=== PATIENT | male | born 1960 | race Caucasian/White ===

== ENCOUNTER 2017-04-12 07:00 | Day surgery (SDC) | payer OTHER ==
[~2017-04-12] VITALS: Ht 182.9 cm; Wt 111.1 kg
[~2017-04-12 07:00] MED LIST: COREG CR40 MG PO; FUROSEMIDE20 MG PO; LISINOPRIL20 MG PO; PERCOCET 7.5-31 EACH PO
--- NOTE | 2017-04-12 09:39 | NUR ---
0930 has been updated warm blanket on.iv patent.
--- NOTE | 2017-04-12 10:56 | NUR ---
04/12/17 1056 Heather Gibson 1033 RESP EVEN AND UNLABORED. 1039 O2 REMOVED, O2 SAT 100%. 1055 PT AWAKE AND DRINKING WATER.
--- NOTE | 2017-04-13 10:17 | OR ---
[facility] [address] [place], [place] [address] Signed DATE OF OPERATION: 04/12/2017 SURGEON: Praveen Coffey MD PREOPERATIVE DIAGNOSIS: Screening. POSTOPERATIVE DIAGNOSES: 1. A 4 mm polyps x3 at 12 cm. 2. A 4 mm polyp at 20 cm. 3. Minimal to moderate sigmoid diverticulosis. PROCEDURE: Colonoscopy with hot biopsy. ESTIMATED BLOOD LOSS: None. INDICATIONS: Reji is a 56-year-old gentleman, asked to see me for his initial screening colonoscopy. He told me I helped his with a colonoscopy just a few weeks ago. He said he has no lower GI complaints and there is no family history of colon cancer or polyps. I gave him a pamphlet on colonoscopy. We looked at that together along with the risks including, but not limited to, gas bloating, crampy abdominal pain, bleeding, perforation, requiring surgery, and missed diagnosis. We also discussed the need for IV conscious sedation. Given his daily need for hydrocodone, we decided our Versed and fentanyl would not be enough. He also has obstructive sleep apnea and requires CPAP mask. Consequently, we asked our anesthesia provider to help us with increased monitoring sedation with propofol. He had expressed understanding and wished to proceed. PROCEDURE NOTE: Reji was taken into our procedure room and placed in the left lateral decubitus position. He was given IV sedation per nurse chief radiation therapist. A digital rectal exam was performed and this was unremarkable. He was getting just a little induration to the prostate at his age. The adult colonoscope was introduced and advanced all around into the cecum under direct visualization of camera without difficulty. His prep was overall good. There was just a couple areas of sticky stool. I could not quite irrigate and suction out completely. The scope was slowly withdrawn. We did see the diverticula in the sigmoid colon. They were moderate in size, minimal to moderate in number, and Electronically Signed By: PRAVEEN COFFEY MD 04/13/17 1017 PATIENT NAME: ARTURO DALTON OPERATIVE REPORT DATE OF : 60 PHYSICIAN: PRAVEEN COFFEY MD REPORT #: [id number] REPORT IS CONFIDENTIAL AND NOT TO BE RELEASED WITHOUT AUTHORIZATION [facility] [address] [place], [place] [address] Signed scattered about. In the rectum, he had one polyp of 20 cm and 3 polyps down around 12 cm. They were all removed with the help of hot biopsy forceps. The scope had been retroflexed and there was no additional pathology noted above the anal canal. After this, the gas was suctioned out and the colonoscope removed. Reji tolerated the procedure quite well. RECOMMENDATIONS: I will see Reji back in my office in 7 to 14 days to review his results. MD LALIT Solomon/CHRISTAL /[id number] cc: Alden Keller MD Electronically Signed By: PRAVEEN COFFEY MD 04/13/17 1017 PATIENT NAME: ARTURO DALTON OPERATIVE REPORT DATE OF : 60 PHYSICIAN: PRAVEEN COFFEY MD REPORT #: [id number] REPORT IS CONFIDENTIAL AND NOT TO BE RELEASED WITHOUT AUTHORIZATION
== END 2017-04-12 11:16 | disposition home or self-care (01) ==
LOC: DS 07:00 → OPS 07:00 → DS 08:00 → OPS 11:16
PROVIDERS: Colon & Rectal Surgery
PROC: 0DBE8ZX Excision of Large Intestine, Via Natural or Artificial Opening Endoscopic, Diagnostic (ICD-10-PCS; principal; 2017-04-12 08:00)
DX: Z12.11 Encounter for screening for malignant neoplasm of colon (principal); D12.6 Benign neoplasm of colon, unspecified; K63.5 Polyp of colon; I10 Essential (primary) hypertension; M19.131 Post-traumatic osteoarthritis, right wrist; Z79.899 Other long term (current) drug therapy; Z98.890 Other specified postprocedural states; Z96.652 Presence of left artificial knee joint; Z87.891 Personal history of nicotine dependence; Z88.8 Allergy status to other drugs, medicaments and biological substances
CPT/HCPCS: 80053; J2704; J7120

== ENCOUNTER 2019-11-27 08:00 | Day surgery (SDC) | payer OTHER ==
[~2019-11-27] VITALS: Ht 180.3 cm; Wt 108.9 kg
[~2019-11-27 08:00] MED LIST changes: +FISH OIL 1,0001 EAC2 NG; +MULTI-VITAMIN1 EACH
[2019-11-27] MEDS ORDERED: CIPRO500 MG PO (08:19)
--- NOTE | 2019-11-28 05:59 | OR ---
[facility] [address] [place], [place] [address] Signed DATE OF OPERATION: 11/27/2019 SURGEON: Praveen Coffey MD PREOPERATIVE DIAGNOSIS: Subcutaneous masses x5. POSTOPERATIVE DIAGNOSES: 1. Epidermal inclusion cyst, right mid back (1 cm). 2. Subcutaneous lipomas x4. PROCEDURE: Excision of subcutaneous masses x5. ESTIMATED BLOOD LOSS: None. 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 He has developed 5 subcutaneous masses over his body that have caused him quite a bit of trouble wearing the harness at work. The largest was on the left anterior shoulder area and it is probably 2-1/2, maybe 3 cm in diameter. He has this another area in the left mid quadrant of his abdomen out laterally. It is probably 12, maybe 15 mm and then he has 2 at the base of his neck, one on left and one on the right, each one a good centimeter or more in diameter, and then his left mid back just slightly off his midline has a sebaceous cyst and/or epidermal inclusion cyst. He describes that very clearly as being squeezed over the years and getting the sebum out of that area. He is not able to do that, it is getting larger and causing him and pain. Particularly, when he has to lay on his back or sit in a chair and so forth. He asked if he could have all 5 of these removed. I explained him we can certainly do all these over at the hospital, particularly on his back, those are the most difficult near the neck and one on his mid back. I know it was going to be difficult given the fact he has been squeezing it for years. He understands each one need a separate incision. There is risk to the surgery including, but not limited to bleeding, infection, scarring, change in contour of the skin as well as recurrent cyst and/or lipomas in the same or other locations. He expressed understanding and wished to proceed. DESCRIPTION OF PROCEDURE: I had met with Rad in our preop area and we marked all 5 locations. After this, he was taken to the operating room and placed in the right lateral decubitus position under Electronically Signed By: PRAVEEN COFFEY MD 11/28/19 0559 PATIENT NAME: ARTURO DALTON OPERATIVE REPORT DATE OF : 60 REPORT #: [id number] PHYSICIAN: PRAVEEN COFFEY MD PCP: ANA AREVALO PAC REPORT IS CONFIDENTIAL AND NOT TO BE RELEASED WITHOUT AUTHORIZATION [facility] [address] [place], [place] [address] Signed general endotracheal tube anesthesia. He had appropriate padding and monitoring in place. He was given preoperative antibiotics along with subcutaneous heparin. SCDs were utilized. He had been prepped and draped in the usual sterile fashion. We started on his left mid quadrant of the abdomen and into his mid back and into the base of his neck. An incision was made over each lesion and carried down around the lesion bluntly and with the cautery. After this, local anesthetic was injected in each operative site. The wounds were irrigated and suctioned out until clear. The dermis was reapproximated with interrupted 3-0 subcuticular Monocryl sutures. The skin edges were then reapproximated with running 5-0 fast absorbing plain gut suture. Dry gauze and tape were applied these for lesions. Afterwards, the entire field was taken down. He was rotated into the supine position. His left shoulder was then prepped and draped in the usual sterile fashion. In a similar fashion, an incision was made over the lesion and carried down around the lesion bluntly and with the cautery. Local anesthetic was injected in the lesion. The wound was irrigated and suctioned out until clear and then the dermis was closed with interrupted 3-0 subcuticular Monocryl sutures. 5-0 fast absorbing plain gut suture was used to reapproximate the skin edges. Dry gauze and tape were then applied. Rad was awakened from his anesthesia, extubated in the OR, and taken to recovery room in stable condition. Praveen Coffey MD ALB/MODL /[id number] cc: MD Alden Solomon MD Copies: PRAVEEN COFFEY MD, JONATHAN MD ~ Electronically Signed By: PRAVEEN COFFEY MD 11/28/19 0559 PATIENT NAME: ARTURO DALTON OPERATIVE REPORT DATE OF : 60 REPORT #: [id number] PHYSICIAN: PRAVEEN COFFEY MD PCP: ANA AREVALO PAC REPORT IS CONFIDENTIAL AND NOT TO BE RELEASED WITHOUT AUTHORIZATION
--- NOTE | 2019-11-29 08:34 | PATH ---
[facility] [address] [facility] [place], [place] [address] Signed SPECIMEN(S): A LEFT LOWER QUADRANT ABDOMEN SPECIMEN(S): B MID BACK SPECIMEN(S): C BASE OF NECK, LEFT SPECIMEN(S): D BASE OF NECK, RIGHT SPECIMEN(S): E LEFT ANTERIOR SHOULDER SPECIMEN SOURCE: A. LEFT LOWER QUADRANT ABDOMEN B. MID BACK C. BASE OF NECK, LEFT D. BASE OF NECK, RIGHT E. LEFT ANTERIOR SHOULDER CLINICAL HISTORY: Subcutaneous masses, left shoulder, neck, back and left side. Excise subcutaneous mass x 4. FINAL PATHOLOGIC DIAGNOSIS: A. Soft tissue, left lower quadrant abdomen, excision: - Mature fibroadipose tissue, consistent with lipoma. B. Soft tissue, mid back, excision: - Epidermoid inclusion cyst, disrupted. C. Soft tissue, left base of neck, excision: - Angiolipoma. D. Soft tissue, right base of neck, excision: - Angiolipoma. E. Soft tissue, left anterior shoulder, excision: - Angiolipoma. NAL:cml:C2NR MICROSCOPIC EXAMINATION: Histologic sections of all submitted blocks are examined by light microscopy. These findings, together with the gross examination, support the pathologic diagnosis. GROSS DESCRIPTION: Five specimens are received in five containers, labeled "DM." A. The specimen, labeled "DM," and designated on the requisition "left lower quadrant abdomen," is received in formalin and consists of multiple pieces of yellow-mcallister fatty tissue (3.7 x 3.3 x 1.7 cm in aggregate). National Sales Manager sections are submitted in cassette (A1). PATIENT NAME: ARTURO DALTON PATHOLOGY DATE OF : 60 REPORT #: [id number] PHYSICIAN: LISA MYRICK PCP: ANA AREVALO PAC REPORT IS CONFIDENTIAL AND NOT TO BE RELEASED WITHOUT AUTHORIZATION [facility] [address] [place], [place] [address] Signed B. The specimen, labeled "DM," and designated on the requisition "mid back mass," is received in formalin and consists of one piece of yellow-mcallister soft tissue (2.1 x 1.5 x 1.0 cm) with a disrupted white-mcallister cystic mass (1.4 x 1.1 x 0.8 cm), containing a white-mcallister grumous to friable material. National Sales Manager sections are submitted in cassette (B1). C. The specimen, labeled "DM," and designated on the requisition "base of neck, left neck," is received in formalin and consists of a portion of yellow-mcallister to hemorrhagic adipose tissue (3.2 x 2.9 x 2.2 cm). The yellow surface is inked blue and the specimen is serially sectioned to reveal a yellow-mcallister fatty cut surface with a pink-mcallister homogenous, well-defined fatty mass (1.7 x 1.7 x 1.2 cm). National Sales Manager sections are submitted in cassette (C1). D. The specimen, labeled "DM," and designated on the requisition "base of neck, right," is received in formalin and consists of a portion of yellow-mcallister a tissue (2.3 x 1.5 x 1.2 cm). The outer surface is inked blue and the specimen is serially sectioned to reveal a yellow-mcallister to mcallister-red fatty cut surface. National Sales Manager sections are submitted in cassette (D1). E. The specimen, labeled "DM," and designated on the requisition "mass left anterior shoulder," is received in formalin and consists of a portion of yellow-mcallister encapsulated fatty tissue (4.5 x 3.8 x 1.4 cm). The specimen is serially sectioned to reveal a yellow-mcallister to slightly hemorrhagic homogenous cut surface. National Sales Manager sections are submitted in cassettes (E1-E2). AC (under the direct supervision of a pathologist) The Gross Description was prepared using a voice recognition system. The report was reviewed for accuracy; however, sound-alike word errors, addition and/or deletions may occur. If there is any question about this report, please contact Client Services. PERFORMING LABORATORY: The technical component was [place] [address] (Cash Sales Audit Clerk: Tiffany Craft MD; CLIA# [id number]). Professional interpretation was performed by [place] [address] (CLIA# [id number]). Diagnostician: Nicolasa Santoyo MD Pathologist Electronically Signed 11/29/2019 PATIENT NAME: ARTURO DALTON PATHOLOGY DATE OF : 60 REPORT #: [id number] PHYSICIAN: LISA MYRICK PCP: ANA AREVALO PAC REPORT IS CONFIDENTIAL AND NOT TO BE RELEASED WITHOUT AUTHORIZATION [place] [address] Signed Copies: ~ PATIENT NAME: SHAARTUROAMILCAR BUSTAMANTE PATHOLOGY DATE OF : 60 REPORT #: [id number] PHYSICIAN: LISA MYRICK PCP: ANA AREVALO PAC REPORT IS CONFIDENTIAL AND NOT TO BE RELEASED WITHOUT AUTHORIZATION
== END 2019-11-27 14:15 | disposition home or self-care (01) ==
LOC: OPS 08:00 → DS 08:00
PROVIDERS: ATTEND Colon & Rectal Surgery
PROC: 0HB6XZZ Excision of Back Skin, External Approach (ICD-10-PCS; 2019-11-27)
PROC: 0JB40ZZ Excision of Right Neck Subcutaneous Tissue and Fascia, Open Approach (ICD-10-PCS; 2019-11-27)
PROC: 0JB50ZZ Excision of Left Neck Subcutaneous Tissue and Fascia, Open Approach (ICD-10-PCS; 2019-11-27)
PROC: 0JBF0ZZ Excision of Left Upper Arm Subcutaneous Tissue and Fascia, Open Approach (ICD-10-PCS; 2019-11-27)
PROC: 0JB80ZZ Excision of Abdomen Subcutaneous Tissue and Fascia, Open Approach (ICD-10-PCS; principal; 2019-11-27 08:15)
DX: D17.0 Benign lipomatous neoplasm of skin and subcutaneous tissue of head, face and neck (principal); D17.1 Benign lipomatous neoplasm of skin and subcutaneous tissue of trunk; D17.39 Benign lipomatous neoplasm of skin and subcutaneous tissue of other sites; L72.0 Epidermal cyst; I11.0 Hypertensive heart disease with heart failure; I50.9 Heart failure, unspecified; Z79.899 Other long term (current) drug therapy; Z87.891 Personal history of nicotine dependence; Z88.8 Allergy status to other drugs, medicaments and biological substances
CPT/HCPCS: J0330; J0690; J1100; J1644; J1885; J2001; J2250; J2405; J2704; J3475; J7121

== ENCOUNTER 2020-06-10 10:47 | Day surgery (SDC) | payer OTHER ==
[~2020-06-10] VITALS: Ht 330.2 cm; Wt 99.8 kg
[~2020-06-10 10:47] MED LIST changes: +BAYER CHEWABLE81 MG PO; +CIPRO500 MG PO; +VITAMIN C1000 MG PO; +VITAMIN D3 COM1 EACH PO
--- NOTE | 2020-06-10 12:39 | NUR ---
06/10/20 1239 Cait Hinojosa 1230- PT TO PACU IN PRONE POSITION. EYES CLOSED. DOES NOT RESPOND TO VERBAL OR TACTILE STIMULI. BREATHING EASY AND UNLABORED.SPO2 >95% ON 3 L O2 VIA NC. VSS. 1237- PT RESPONDS TO VERBAL AND TACTILE STIMULI. PT DROWSY BUT BREATHING EASY AND UNLABORED. SPO2 >95% . O2 TITRATED DOWN TO ROOM AIR. PT DENIES PAIN NAUSEA OR DIZZINESS.
--- NOTE | 2020-06-17 14:18 | PATH ---
[facility] [address] [facility] [place], [place] [address] Signed THIS IS AN ADDENDUM REPORT SPECIMEN(S): C COMPREHENSIVE FLOW CYTOMETRY ONLY IN BM EDTA SPECIMEN(S): A BONE MARROW - CORE SPECIMEN(S): B BONE MARROW - ASPIRATION CLINICAL HISTORY: Bone marrow biopsy. 59-year-old asymptomatic man with thrombocytosis, evaluate ET or MPN. See attached. 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 Peripheral blood - Thrombocytosis. - No circulating blasts are identified. B. Bone marrow biopsy and aspiration: - Mildly hypercellular marrow, 60%, with 1% blasts. - Trilineage hematopoiesis with no significant dyspoiesis. 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 - Normal marrow iron stores by Prussian Blue stain. - Trace reticulin fibrosis (MF 0/1). DIAGNOSTIC COMMENT: The morphologic findings and JAK2 V617F positive mutation result are consistent with a myeloproliferative neoplasm, essential thrombocythemia (ET). Tests for BCR/ABL1, MPL, and CALR as well as chromosome analysis are pending and will be reported in an addendum. A pre-fibrotic phase of primary myelofibrosis is a less likely diagnosis. The megakaryocytic morphology is more typical for ET. Correlation with clinical and radiographic findings (spleen size) is needed. JLP:C1NR HISTORICAL SUMMARY: 59-year-old male with no diagnosed prior hematologic neoplasm. Presents with history of thrombocytosis since Dec 2013. This marrow is to evaluate the elevated platelet count. PERIPHERAL BLOOD: HEMOGRAM (06/10/2020): WBC 9.8 K/ul, RBC 5.71 M/ul, HGB 15.5 g/dl, HCT 48.5%, MCV 85.0 fl, MCH 27 pg, MCHC 32 g/dl, RDW 15.7%, PLT 812 K/ul. AUTOMATED DIFFERENTIAL COUNT: Neutrophils 75.3%, lymphocytes 15.6%, monocytes PATIENT NAME: ARTURO DALTON PATHOLOGY DATE OF : 60 REPORT #: [id number] PHYSICIAN: LISA MYRICK PCP: ANA AREVALO PAC REPORT IS CONFIDENTIAL AND NOT TO BE RELEASED WITHOUT AUTHORIZATION [facility] [address] [place], [place] [address] Signed 3.3%, eosinophils 3.7%, basophils 2.1%. The red blood cells are normocytic and normochromic with minimal anisopoikilocytosis. The neutrophils are unremarkable. Lymphocytes are composed of small mature appearing forms. Platelets appear increased in number with a normal morphology. No platelet clumping or RBC microangiopathic effect identified. No blasts are identified. BONE MARROW: ASPIRATE SMEARS/TOUCH IMPRINT: The aspirate smears are adequate for evaluation. Scattered erythroid precursors show adequate maturation with essentially normal morphology. The myeloid precursors show full maturation with unremarkable morphology. There is no increase in blasts. Megakaryocytes are identified with an abnormal morphology. Variably sized megakaryocytes are noted with some large irregular forms. BONE MARROW DIFFERENTIAL COUNT (300 cells): Blasts 1%, promyelocytes 1%, myelocytes 3%, metamyelocytes/bands/segs 39%, erythroid precursors 35%, lymphocytes 14%, monocytes 3%, eosinophils 3%, plasma cells 1%. M:E ratio: 1.3:1 BONE MARROW CORE BIOPSY/ASPIRATE CLOT/CELL BLOCK: The aspirate clot section and the core biopsy are adequate for evaluation. The core biopsy demonstrates unremarkable trabecular bone. The cellularity is mildly increased for age, estimated at 60%. The erythroid precursors are within normal limits with essentially unremarkable maturation. The myeloid precursors are unremarkable with no significant dyspoiesis. Blasts are not increased. Megakaryocytes appear increased in number. Cytoplasmic abutment of megakaryocytes are noted. The megakaryocytes are variably sized with some large megakaryocytes, some with a "staghorn" like appearance. No granulomas or foreign malignant cells are detected. Small circumscribed lymphoid aggregates are noted composed of small, mature appearing lymphocytes. A panel of stains is performed to evaluate the lymphoid aggregate (results below). A reactive process is favored for the lymphoid aggregates. SPECIAL STAINS (with adequate controls): - Iron (aspirate smear): Insufficient marrow spicules are present for evaluation of iron stores. No ring sideroblasts are noted. - Iron (aspirate clot): Appears normal. - Reticulin (block A1): Trace reticulin fibrosis, MF 0-1. IMMUNOHISTOCHEMISTRY (block A1): PATIENT NAME: ARTURO DALTON PATHOLOGY DATE OF : 60 REPORT #: [id number] PHYSICIAN: LISA PATHOLOGY PCP: ANA AREVALO PAC REPORT IS CONFIDENTIAL AND NOT TO BE RELEASED WITHOUT AUTHORIZATION [address] [address] Signed - CD3 (T-cells): 5-10% with positive marking in lymphoid aggregates. - PAX 5 (B-cells): 1%, no atypical aggregates. FLOW CYTOMETRY: Bone marrow, flow cytometry: - No diagnostic abnormal populations are identified by flow cytometry. - See Comment. COMMENT: 2.3% blasts are identified with no aberrant marking. The majority of the gated lymphocytes are T-cells with a normal marking pattern. The B-cells are unremarkable with no light chain restriction or aberrant marking. No aberrant marking is detected in the myeloid or monocyte gate areas. Plasma cells are not increased. Correlation with histologic findings is required to exclude neoplasms that are typically negative by flow cytometry. FLOW CYTOMETRY ANALYSIS: FLOW DIFFERENTIAL (% Total CD45 vs. SSC gating): Myeloid 83%; Lymphoid 7%; Monocyte 1%; Dim CD45/Blast: 2.3%. Cell Count: 4.2 x 10*3/uL. POPULATION ANALYSIS: BLASTS: Analysis of the dim CD45 gate demonstrates 2.3% myeloblasts by CD34/CD117. 0.6% hematogones are detected. LYMPHOID CELLS: The lymphocyte gate comprises 7% of total events and includes 92% T-cells with a CD4:CD8 ratio of 2.7:1 and normal grimm T-cell antigen expression. 7% of lymphocytes are polyclonal B-cells with a kappa:lambda ratio of 1.3:1. The remainders are NK-cells. MYELOID CELLS: The myeloid population comprises 83% of the total events. No aberrant immunophenotypic expression is detected. MONOCYTES: The monocyte population comprises 1% of the total events. Monocytes are not increased. No aberrant immunophenotypic expression is detected. PLASMA CELLS: 0.2% plasma cells are detected in the screening gate neg-dimCD45/CD38. Plasma cells are CD45 dim and positive for CD19. ANTIBODIES USED: KAPPA, LAMBDA, CD20, CD10, CD19, CD23, CD38, FMC7, CD16, CD56, CD8, CD5, CD2, CD4, CD7, CD3, CD14, CD33, CD13, HLADR, CD34, CD117, CD15, CD45: TOTAL ANTIBODIES USED: 24. JNB FINAL DIAGNOSIS PERFORMED BY: Ganesh Hansen MD, Apr 1 2021 11:35AM CYTOGENETICS: Chromosome analysis is pending and the results will be reported in an PATIENT NAME: ARTURO DALTON PATHOLOGY DATE OF : 60 REPORT #: [id number] PHYSICIAN: LISA MYRICK PCP: ANA AREVALO PAC REPORT IS CONFIDENTIAL AND NOT TO BE RELEASED WITHOUT AUTHORIZATION [facility] [address] [place], [place] [address] Signed addendum. FISH ANALYSIS: A CML FISH panel is requested and the results will be reported in an addendum. MOLECULAR / PCR: Molecular testing for JAK2 exon 12, MPL, and CALR are requested and the results will be reported in an addendum. Bone marrow aspirate, JAK2 (V617F) point mutation detection Mutation specific PCR assay Results/Conclusions: POSITIVE - The specimen tested positive for the presence of the JAK2 V617F point mutation. - Clinical and histological correlation required for diagnosis. The mutation specific JAK2 V617F PCR assay can be used for monitoring purposes with a sensitivity of at least 1 in 1000 cells (0.1 %). The V617F mutation of the JAK2 (Janus kinase 2) gene has been described in polycythemia vera (PV), essential thrombocythemia (ET) and in primary myelofibrosis (PMF) cases [Du et al. The Lancet 2005: 1054 1061] [Nicolle et al. Cancer Cell 2005: 387-397]. The identification of the V617F JAK2 point mutation in myeloproliferative neoplasms (MPN) may be useful to assist diagnosis, classification and monitoring. Method: Utilizes quantitative real-time polymerase chain reaction (PCR) assay with specific primers for the JAK2 V617F point mutation. Genomic DNA was isolated from the specimen and quality and quantity were confirmed by RQ-PCR. Although molecular testing is highly accurate, rarely false-positive and false-negative diagnostic errors may occur. ZACK/ANA/RORO The technical and professional components of the molecular analysis were performed at [facility]. ([place], [place], case #[id number]). Detailed report is kept on file. GROSS DESCRIPTION: Two specimens are received in two containers, labeled "DM." A. The specimen, labeled "DM, bone marrow core," is received in formalin and consists of one mcallister-brown, cylindrical bone core fragment measuring 0.2 cm in diameter and 2.7 cm in length. The specimen is entirely submitted in cassette (A1) following decalcification in Immunocal. PATIENT NAME: ARTURO DALTON PATHOLOGY DATE OF : 60 REPORT #: [id number] PHYSICIAN: LISA MYRICK PCP: ANA AREVALO PAC REPORT IS CONFIDENTIAL AND NOT TO BE RELEASED WITHOUT AUTHORIZATION [facility] [address] [place] [id number] Signed B. The specimen, labeled "DM, clot," is received in formalin and consists of thickened clot material measuring 2.0 x 2.0 x 0.6 cm in aggregate. The specimen is filtered and entirely submitted in cassette (B1). Bone marrow inventory also includes: Two peripheral smears, one EDTA tube bone marrow, two heparin tubes. AT (under the direct supervision of a pathologist) The Gross Description was prepared using a voice recognition system. The report was reviewed for accuracy; however, sound-alike word errors, addition and/or deletions may occur. If there is any question about this report, please contact Client Services. ADDITIONAL NOTES: This test was developed and its performance characteristics determined by [facility]. It has not been cleared or approved by the US Food and Drug Administration. The FDA does not require this test to go through premarket FDA review. This test is used for clinical purposes. It should not be regarded as investigational or for research. This laboratory is certified under the Clinical Laboratory Improvement Amendments (CLIA) as qualified to perform high complexity clinical laboratory testing. Immunohistochemical and/or in situ hybridization studies were performed on this case with the appropriate positive controls that react as expected. This test was developed and its performance characteristics determined by [facility]. It has not been cleared or approved by the U.S. Food and Drug Administration. The FDA has determined that such clearance or approval is not necessary. This test is used for clinical purposes. It should not be regarded as investigational or for research. [facility] is certified under the Clinical Laboratory Improvement Amendments of 1988 (CLIA) as qualified to perform high complexity clinical laboratory testing. This assay has not been validated for specimens that have been decalcified. In this case, certain antibodies were performed by both immunohistochemistry and flow cytometry analysis because flow cytometry analysis did not fully explain all the light microscopic findings. Immunohistochemistry aided in the analysis. Both methods are deemed medically necessary in this case. PERFORMING LABORATORY: PATIENT NAME: ARTURO DALTON PATHOLOGY DATE OF : 60 REPORT #: [id number] PHYSICIAN: LISA MYRICK PCP: ANA AREVALO PAC REPORT IS CONFIDENTIAL AND NOT TO BE RELEASED WITHOUT AUTHORIZATION [facility] [address] [place], [place] [address] Signed The technical component was performed by [facility], [address] [place] [address] (Advertising Vice President: Trey Rincon D.O.; CLIA#: [id number]). Professional [place] [address] A portion of the technical component was performed by [facility], [address] [place] [address] (Advertising Vice President: Tiffany Craft MD; CLIA# [id number]). A portion of the technical component was performed by [facility], [address] [place] [address] (Advertising Vice President: Trey Rincon D.O.; CLIA#: [id number]). Professional [place] [address]. IMAGES: A: [id number] A: [id number] REASON FOR ADDENDUM: To add results of additional testing. Bone marrow aspirate, FISH (fluorescence in situ hybridization) Result: Normal Negative for BCR/ABL1 gene rearrangements Interpretation: - There is no evidence of a BCR/ABL1 t(9;22) gene rearrangement in this specimen at the sensitivity of this analysis. - Clinical and hematopathology correlation is recommended. FISH (fluorescence in situ hybridization) was performed using the BCR(G)/ABL1(R) + ASS1(A, 9q34) tri-color dual fusion translocation probe, specific for the t(9;22) associated with CML, AML and ALL. This probe set allows detection of the BCR/ABL1 gene fusion on both the derivative 9 and the derivative 22 chromosome and allows detection of "atypical" [place] translocations (patients with a complex [place] translocation and/or a deletion at one of the breakpoints, in addition to assessing the deletion status of the 9q34 region around the ASS1 gene). FISH Analysis Summary: -06/15/2020 xl @1248 Number of Cells Analyzed: 300 Cells Analyzed: Interphase Probes Utilized: BCR/ABL1,ASS Source and Lot Number: [employer], [id number] Control Probe Utilized: database PATIENT NAME: ARTURO DALTON PATHOLOGY DATE OF : 60 REPORT #: [id number] PHYSICIAN: LISA MYRICK PCP: ANA AREVALO PAC REPORT IS CONFIDENTIAL AND NOT TO BE RELEASED WITHOUT AUTHORIZATION [address] [address] Signed The technical and professional components of the FISH study were performed at [facility], [facility]. ([place], [place], case #[id number]). Detailed report is kept on file. To add results of additional testing. Bone marrow aspirate, JAK2 exon12 Results/Conclusions: NEGATIVE-no exon 12 mutations detected - The specimen tested negative for JAK2 exon 12 mutations in this specimen at the sensitivity level of the analysis (approximately 5%). - The presence of JAK2 exon 12 mutations below the sensitivity limit of this analysis (approximately 5%) cannot be ruled out. - Clinical and histological correlation would be required for the diagnosis. Mutations in the JAK2 exon 12 (Janus kinase 2) gene are rare in ET or PMF, and their occurrence in PV is almost always associated with the absence of [id number] and the presence of a subnormal serum erythropoietin level [Pardanani et al Leukemia 21: 2007; Pietra et al Blood 111: 2008]. The identification of the JAK2 exon 12 mutations in myeloproliferative neoplasms (MPN) may be useful to assist diagnosis, classification and monitoring. Method: Polymerase chain reaction (PCR) amplification in combination with fluorescence-based capillary electrophoresis is utilized to detect insertion /deletion mutations as well as the K539L substitution mutation in exon 12 of the JAK2 gene. The JAK2 exon 12 amplification yields a wild-type PCR product of 281 base pairs. The presence of a deletion mutation will result in a mutant PCR product <281 bp, an insertion mutation yields a PCR product >281 bp. The K539L substitution mutation generates a PCR product of 130 base pairs in size. This assay can detect the most frequent mutations reported in JAK2 exon 12 with a minimum sensitivity of 5% depending on the wild type background in the specimen. [Glenny et al "A multiplexed fragment analysis-based assay for detection of Jak2 exon 12 mutations" The Journal of Molecular Diagnostics. Vol. 15. No. 5. 2013] Although molecular testing is highly accurate, rarely false-positive and false-negative diagnostic errors may occur. ANA/RORO/ZACK The technical and professional components of the molecular analysis were performed at [facility], [facility]. ([place], [place], case #[id number]). Detailed report is kept on file. Bone marrow aspirate, MPL (W515L/K) point mutation detection Results/Conclusions: NEGATIVE - The specimen tested negative for MPL W515L/K point mutations. PATIENT NAME: ARTURO DALTON PATHOLOGY DATE OF : 60 REPORT #: [id number] PHYSICIAN: LISA MYRICK PCP: ANA AREVALO PAC REPORT IS CONFIDENTIAL AND NOT TO BE RELEASED WITHOUT AUTHORIZATION [facility] [address] [place], [place] [address] Signed - Clinical and histological correlation would be required for the diagnosis. W515L/K mutations of the juxtamembrane region of the thrombopoietin receptor MPL (myeloproliferative leukemia virus oncogene homology) have been described in JAK2 V632E-mknhxgut primary myelofibrosis (PMF) and essential thrombocythemia (ET).1 The identification of W515 L/K point mutations in myeloproliferative neoplasms (MPN) may be useful to assist diagnosis, classification and monitoring. The presence of a W515L/K MPL point mutation below the sensitivity limit of this analysis [approximately 5 in 100 cells (5 %) in EDTA specimens] cannot be ruled out. References: 1. Charles rodriguez al. JMD 2008: 435 441 Method: Polymerase chain reaction (PCR) amplification in combination with fluorescence-based capillary electrophoresis is utilized to identify MPL W515L/K point mutations. This assay can detect MPL W515L/K point mutations with a minimum sensitivity of 5% depending on the wild type background in the specimen. Although molecular testing is highly accurate rarely false-positive and false-negative diagnostic errors may occur. DW/MRL/ZACK The technical and professional components of the molecular analysis were performed at [facility] ([place], [place], case #[id number]). Detailed report is kept on file. Diagnostician: Ganesh Hansen MD Pathologist Electronically Signed 06/17/2020 Copies: ~ PATIENT NAME: ARTURO DALTON PATHOLOGY DATE OF : 60 REPORT #: [id number] PHYSICIAN: LISA PATHOLOGY PCP: ANA AREVALO PAC REPORT IS CONFIDENTIAL AND NOT TO BE RELEASED WITHOUT AUTHORIZATION
== END 2020-06-10 13:10 | disposition home or self-care (01) ==
LOC: OPS 10:47 → DS 10:50 → OPS 12:00
PROVIDERS: ATTEND Specialist
PROC: 079T3ZX Drainage of Bone Marrow, Percutaneous Approach, Diagnostic (ICD-10-PCS; 2020-06-10)
PROC: 07DR3ZX Extraction of Iliac Bone Marrow, Percutaneous Approach, Diagnostic (ICD-10-PCS; principal; 2020-06-10 12:00)
DX: C94.6 Myelodysplastic disease, not elsewhere classified (principal); I11.0 Hypertensive heart disease with heart failure; I50.9 Heart failure, unspecified
CPT/HCPCS: 80053; 83615; 85025; 85651; 86140; 86431; 99153; G0500; J2250; J3010; J7121

== ENCOUNTER 2022-07-31 11:41 | Emergency (ER) | payer OTHER ==
[~2022-07-31] VITALS: Ht 182.9 cm; Wt 108.9 kg
--- OUTSIDE RECORDS SUMMARY | 2022-07-31 11:44 | XMS ---
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 [facility]amar VISIT COUNT (12 MO.) 1 MELISSA Ramos TOTAL 1 NOTE: Visits indicate total known visits. ED/UCC VISIT TRACKING (12 MO.) 07/31/2022 11:42 MELISSA [facility] TYPE: Emergency COMPLAINT: - R FOOT SWELLING/PAIN INPATIENT VISIT TRACKING (12 MO.) No inpatient visits to display in this time frame [email or web address]
[2022-07-31] MEDS ORDERED: DROXIA200 MG PO (13:12)
[2022-07-31] MEDS ORDERED: INDOMETHACIN50 MG PO (14:37)
[2022-07-31 14:50] VITALS: BP 127/81
== END 2022-07-31 14:51 | disposition home or self-care (01) ==
LOC: ED 11:41
DX: M10.9 Gout, unspecified (principal); I50.9 Heart failure, unspecified; Z87.891 Personal history of nicotine dependence; Z79.899 Other long term (current) drug therapy; Z79.82 Long term (current) use of aspirin
CPT/HCPCS: 73610; 99283-25